=== PATIENT | female | born 1955 | race Caucasian/White ===

== ENCOUNTER 2021-06-10 12:45 | Emergency (ER) | payer OTHER ==
[~2021-06-10] VITALS: Ht 165.1 cm; Wt 71.7 kg
[2021-06-10 12:59] VITALS: BP 166/94
[2021-06-10 13:30] LABS: BASO % 0.5 % (0.0-1.0); EOS # 0.2 10*3/uL (0.0-0.4); EOS % 2.7 % (1.0-4.0); HEMATOCRIT 48.2 % (37.0-47.0); LYMPH # 2.5 10*3/uL (1.3-4.4); LYMPH % 34.3 % (27.0-41.0); MEAN CELL VOLUME 84.7 fl (81.0-99.0); MEAN CORPUSCULAR HGB 28.6 pg (27.0-31.0); MEAN CORPUSCULAR HGB CONC 33.8 g/dl (33.0-37.0); MEAN PLATELET VOLUME 8.5 fl (9.6-12.3); MONO # 0.4 10*3/uL (0.1-1.0); NEUT # 4.1 10*3/uL (2.3-7.9); NEUT % 56.1 % (47.0-73.0); PLATELET COUNT AUTOMATED 319 10*3/uL (130-400); RED BLOOD COUNT 5.69 10*6/uL (4.10-5.10); RED CELL DISTRI WIDTH 13.2 % (0-14.5); WHITE BLOOD COUNT 7.4 10*3/uL (4.8-10.8)
[2021-06-10 13:47] LABS: ALKALINE PHOSPHATASE 72 U/L (45-117); BUN 19 mg/dl (7-24); CHLORIDE 103 mmol/L (98-107); CREATININE 0.83 mg/dL (0.55-1.02); POTASSIUM 4.2 mmol/L (3.5-5.1); SGOT/AST 19 IU/L (3-35); SGPT/ALT 30 U/L (12-78); SODIUM 136 mmol/L (136-145); TOTAL PROTEIN 7.7 gm/dL (6.4-8.2)
[2021-06-10] MEDS ORDERED: VISTARIL25 M2 PO (15:44)
== END 2021-06-10 16:07 | disposition home or self-care (01) ==
LOC: ED 12:45
PROVIDERS: Student in an Organized Health Care Education/Training Program
DX: F41.9 Anxiety disorder, unspecified (principal); Z91.041 Radiographic dye allergy status; Z88.6 Allergy status to analgesic agent

== ENCOUNTER → 2021-07-26 | Outpatient (CLI) | payer OTHER ==
[~2021-07-26] MED LIST: VISTARIL25 M2 PO
== END | disposition home or self-care (01) ==
LOC: CARD 11:29
PROVIDERS: ATTEND Internal Medicine Cardiovascular Disease
DX: I08.1 Rheumatic disorders of both mitral and tricuspid valves (principal); E83.110 Hereditary hemochromatosis